=== PATIENT | female | born 1985 | race Caucasian/White ===

== ENCOUNTER 2021-07-09 15:10 | Outpatient (CLI) | payer OTHER ==
[2021-07-09 17:54] LABS: #Basophils 0.1 10x3/uL (0.0-0.2); #Eosinphils 0.2 10x3/uL (0.0-0.5); #Monocytes 0.4 10x3/uL (0.0-1.1); #Neutrophils 3.3 10x3/uL (1.5-8.4); %Basophils 1.3 % (0.0-2.0); %Eosinophils 3.2 % (0.0-6.0); %Lymphocytes 36.1 % (18.0-47.0); %Monocytes 6.5 % (0.0-10.0); %Neutrophils 52.6 % (40.0-75.0); Hemoglobin 13.8 g/dL (12.0-15.5); Mean Corpuscular HGB CONC 33.4 g/dL (32.0-36.0); Mean Corpuscular Volume 95.8 fl (81.6-98.3); Mean Platelet Volume 9.5 fl (7.4-10.4); Platelet Count 339 10x3/uL (150-450); RBC Distribution Width 12.8 % (11.5-14.5); Red Blood Cell (RBC) Count 4.31 10x6/uL (3.90-5.03); White Blood Cell (WBC) Count 6.3 10x3/uL (3.5-10.5)
[2021-07-09 18:03] LABS: BHCG - Serum Negative (NEGATIVE); Pregs Control Background? CLEAR/WHITE (CLR/WHITE); Pregs Control Bar Appear? YES (CONTROL BAR)
[2021-07-10 02:55] LABS: SARS-CoV-2 PCR by NAA Not Detected (NotDetected)
== END 2021-07-09 15:11 | disposition home or self-care (01) ==
LOC: LABBT 15:10
PROVIDERS: ATTEND Surgery
DX: Z01.812 Encounter for preprocedural laboratory examination (principal); N61.1 Abscess of the breast and nipple; Z20.822 Contact with and (suspected) exposure to COVID-19
CPT/HCPCS: 84703; 85025; U0003; U0005

== ENCOUNTER 2021-07-11 09:32 | Day surgery (SDC) | payer OTHER ==
[2021-07-04 15:08] VITALS: BMI 36.6
[2021-07-11] MEDS ORDERED: ceFAZolin 2 GM/DEX 5% 100 ML BAG ONE (09:45)
[2021-07-11] MEDS ORDERED: Fentanyl 100 MCG/2 ML VIAL ONE ×3 (10:02→12:05)
[2021-07-11] MEDS ORDERED: Bupivacaine PF 0.5% 30 ML VIAL ONE (10:02)
[2021-07-11] MEDS ORDERED: Midazolam HCl 2 mg/2 ml Vial ONE (10:12)
[2021-07-11] MEDS ORDERED: Dexamethasone 20 MG/5 ML VIAL ONE (10:14)
[2021-07-11] MEDS ORDERED: Ketorolac Tromethamine 30 MG/ML VIAL ONE (10:14)
[2021-07-11] MEDS ORDERED: Ondansetron PF 4 MG/2 ML Vial ONE (10:14)
[2021-07-11] MEDS ORDERED: HYDROcodone/Acetaminophen 5/325 mg Tablet ONE (12:46)
== END 2021-07-11 13:16 | disposition home or self-care (01) ==
LOC: SDC 09:32
PROVIDERS: ATTEND Surgery
PROC: 0HBT0ZZ Excision of Right Breast, Open Approach (ICD-10-PCS; principal; 2021-07-11)
DX: N61.1 Abscess of the breast and nipple (principal); N60.01 Solitary cyst of right breast; D24.1 Benign neoplasm of right breast; N60.11 Diffuse cystic mastopathy of right breast; N60.81 Other benign mammary dysplasias of right breast; N60.91 Unspecified benign mammary dysplasia of right breast; I10 Essential (primary) hypertension; G89.29 Other chronic pain; F17.200 Nicotine dependence, unspecified, uncomplicated; Z79.899 Other long term (current) drug therapy
CPT/HCPCS: 88305; J1100; J1885; J2250; J2405; J3010; S0020